=== PATIENT | female | born 2000 | race Caucasian/White ===

== ENCOUNTER 2024-08-26 00:32 | Inpatient (IN) | payer OTHER ==
[~2024-08-26] VITALS: Ht 177.8 cm; Wt 100.0 kg
[2024-08-26] MEDS: SODIUM CHLORIDE 0.9% 1,000 ML IV ONE ×2 (01:10→02:15)
[2024-08-26 01:29] LABS: BASOPHILS % (AUTO) 0.6 % (0.0-2.0); EOSINOPHILS % (AUTO) 1.2 % (1.0-6.0); HEMATOCRIT 38.5 % (36-46); HEMOGLOBIN 12.6 g/dL (12.0-16.0); LYMPHOCYTES # (AUTO) 1.8 K/uL (1.0-4.8); LYMPHOCYTES % (AUTO) 18.2 % (22.0-44.0); MEAN CORPUSCULAR HGB CONC 32.7 G/dL (31.0-37.0); MEAN CORPUSCULAR VOLUME 80 fL (80-100); MONOCYTES # (AUTO) 0.7 K/uL (0.1-1.0); MONOCYTES % (AUTO) 7.2 % (2.0-9.0); NEUTROPHILS # (AUTO) 7.3 K/uL (1.8-7.7); NEUTROPHILS % (AUTO) 72.8 % (40.0-70.0); PLATELET COUNT (AUTO) 212 K/uL (150-450); RED BLOOD CELL COUNT(AUTO) 4.84 MIL/uL (4.00-5.20); RED CELL DISTRIBUTION WIDTH 15.5 % (11.5-14.5)
[2024-08-26 01:33] LABS: ANION GAP 9 mmol/L (8-16); CALCIUM, TOTAL 9.2 mg/dL (8.8-10.5); CARBON DIOXIDE 30 mmol/L (22-29); CHLORIDE 102 mmol/L (98-107); CREATININE 0.72 mg/dL (0.60-1.30); GLOMERULAR FILTR. RATE CALC > 60 mL/min (>60); GLUCOSE,RANDOM 93 mg/dL (70-110); LIPASE 31 U/L (16-77); POTASSIUM 3.6 mmol/L (3.5-5.1); SODIUM SERUM 141 mmol/L (136-145); UREA NITROGEN, BLOOD 8 mg/dL (7-18)
[2024-08-26] MEDS: ONDANSETRON HCL 4 MG/2 ML VIAL IVP ONE (02:14)
[2024-08-26] MEDS: KETOROLAC TROMETHAMINE 30 MG/ML VIAL IVP ONE (02:14)
[2024-08-26 02:28] LABS: APPEARANCE,URINE HAZY (CLEAR); COLOR,URINE DARK YELLOW (YELLOW); GLUCOSE, URINE (UA) NEGATIVE (NEGATIVE); LEUKOCYTE ESTERASE ,URINE LARGE (NEGATIVE); NITRATE,URINE NEGATIVE (NEGATIVE); OCCULT BLOOD,URINE NEGATIVE (NEGATIVE); PH,URINE 5.5 (5.0-8.0); PROTEIN,URINE TRACE mg/dL (NEGATIVE); SPECIFIC GRAVITIY, URINE 1.032 (1.003-1.030)
[2024-08-26 02:29] LABS: BILIRUBIN,URINE MODERATE (NEGATIVE)
[2024-08-26 02:34] LABS: ALBUMIN 3.4 g/dL (3.4-5.0); BILIRUBIN,DIRECT 3.2 mg/dL (0.00-0.20); BILIRUBIN,TOTAL 4.4 mg/dL (0.1-1.0); TOTAL PROTEIN, SERUM 7.9 g/dL (6.4-8.2)
[2024-08-26 02:37] LABS: BACTERIA,URINE None Seen /HPF (None Seen); RBC,URINE None Seen /HPF (0-2); SQUAMOUS EPITHELIAL CELL,UR Many /LPF (None Seen)
[2024-08-26] MEDS ORDERED: IOHEXOL 350 MG/ML 100 ML VIAL ONE (02:44)
[2024-08-26] MEDS ORDERED: SODIUM CHLORIDE 0.9% 100 ML ONE (02:44)
[2024-08-26] MEDS ORDERED: ONDANSETRON HCL 4 MG/2 ML VIAL IVP PRN (02:45)
[2024-08-26 05:29] VITALS: BP 113/62; PULSE 59; RESP 18; TEMP 97.8; O2SAT 100
[2024-08-26] MEDS ORDERED: SODIUM CHLORIDE 0.9% 250 ML IV ONE (07:04)
[2024-08-26] MEDS: PIPERACILLIN/TAZO 3.375 GM/D5W 50 ML IV SCH (07:06)
[2024-08-26 07:29] VITALS: BP 110/74; PULSE 65; RESP 18; TEMP 97.9; O2SAT 99
[2024-08-26] MEDS: DOCUSATE SODIUM 100 MG CAPSULE PO SCH (08:14)
[2024-08-26] MEDS ORDERED: MIDAZOLAM HCL 2 MG/2 ML VIAL ONE (12:00)
[2024-08-26] MEDS ORDERED: FentaNYL CITRATE PF 100 MCG/2 ML VIAL ONE (12:00)
[2024-08-26] MEDS: RINGERS SOLUTION,LACTATED 1,000 ML IV SCH (14:14)
[2024-08-26] MEDS: KETOROLAC TROMETHAMINE 15 MG/ML VIAL IVP PRN (15:32)
[2024-08-26 20:05] VITALS: BP 123/77; PULSE 60; RESP 18; TEMP 98.4; O2SAT 100
[2024-08-27 04:25] VITALS: BP 130/60; PULSE 59; RESP 18; TEMP 97.9; O2SAT 100
[2024-08-27 07:38] VITALS: BP 124/77; PULSE 69; RESP 18; TEMP 98.1; O2SAT 100
[2024-08-27] MEDS: HEPARIN SODIUM,PORCINE 5,000 UNITS/ML VIAL SQ SCH (08:38)
[2024-08-27 12:18] LABS: BASOPHILS % (AUTO) 0.5 % (0.0-2.0); EOSINOPHILS % (AUTO) 1.7 % (1.0-6.0); HEMATOCRIT 35.2 % (36-46); HEMOGLOBIN 11.6 g/dL (12.0-16.0); LYMPHOCYTES # (AUTO) 1.4 K/uL (1.0-4.8); MEAN CORPUSCULAR HEMOGLOBIN 26.3 pg (26.0-34.0); MEAN CORPUSCULAR HGB CONC 32.9 G/dL (31.0-37.0); MEAN CORPUSCULAR VOLUME 80 fL (80-100); MONOCYTES # (AUTO) 0.5 K/uL (0.1-1.0); MONOCYTES % (AUTO) 7.9 % (2.0-9.0); NEUTROPHILS # (AUTO) 4.8 K/uL (1.8-7.7); NEUTROPHILS % (AUTO) 69.9 % (40.0-70.0); PLATELET COUNT (AUTO) 181 K/uL (150-450); RED BLOOD CELL COUNT(AUTO) 4.41 MIL/uL (4.00-5.20); RED CELL DISTRIBUTION WIDTH 15.7 % (11.5-14.5); WHITE BLOOD COUNT (AUTO) 6.8 K/uL (4.5-11.0)
[2024-08-27 12:30] LABS: ANION GAP 8 mmol/L (8-16); CALCIUM, TOTAL 8.4 mg/dL (8.8-10.5); CARBON DIOXIDE 25 mmol/L (22-29); CHLORIDE 106 mmol/L (98-107); CREATININE 0.67 mg/dL (0.60-1.30); GLOMERULAR FILTR. RATE CALC > 60 mL/min (>60); GLUCOSE,RANDOM 82 mg/dL (70-110); POTASSIUM 4.2 mmol/L (3.5-5.1); SODIUM SERUM 139 mmol/L (136-145); UREA NITROGEN, BLOOD 6 mg/dL (7-18)
[2024-08-27] MEDS ORDERED: GADOTERATE MEGLUMINE 10 MMOL/20 ML VIAL IVP ONE (13:46)
[2024-08-27 16:48] VITALS: BP 124/74; RESP 18; O2SAT 100
[2024-08-27 17:26] LABS: ANION GAP 8 mmol/L (8-16); CALCIUM, TOTAL 8.5 mg/dL (8.8-10.5); CARBON DIOXIDE 25 mmol/L (22-29); CHLORIDE 105 mmol/L (98-107); CREATININE 0.66 mg/dL (0.60-1.30); GLOMERULAR FILTR. RATE CALC > 60 mL/min (>60); GLUCOSE,RANDOM 81 mg/dL (70-110); SODIUM SERUM 138 mmol/L (136-145); UREA NITROGEN, BLOOD 5 mg/dL (7-18)
[2024-08-27 17:31] LABS: ALANINE AMINOTRANSFERASE 315 U/L (12-78); ALBUMIN 2.9 g/dL (3.4-5.0); ALKALINE PHOSPHATASE 264 U/L (46-116); ASPARTATE AMINOTRANSFERASE 215 U/L (15-37); BILIRUBIN,TOTAL 4.6 mg/dL (0.1-1.0)
[2024-08-27 19:29] VITALS: BP 122/83; PULSE 63; RESP 18; TEMP 98.1; O2SAT 99
[2024-08-28 01:07] LABS: HEPATITIS C AB (EIA) Non Reactive (Non Reactive)
[2024-08-28 06:26] VITALS: BP 129/71; PULSE 72; RESP 19; TEMP 98.2; O2SAT 98
[2024-08-28 07:15] VITALS: BP 120/65; PULSE 80; RESP 18; TEMP 98.4; O2SAT 100
[2024-08-28 07:28] LABS: ALANINE AMINOTRANSFERASE 333 U/L (12-78); ALBUMIN 2.6 g/dL (3.4-5.0); ALKALINE PHOSPHATASE 263 U/L (46-116); ANION GAP 9 mmol/L (8-16); ASPARTATE AMINOTRANSFERASE 225 U/L (15-37); BILIRUBIN,TOTAL 4.6 mg/dL (0.1-1.0); CALCIUM, TOTAL 8.3 mg/dL (8.8-10.5); CARBON DIOXIDE 24 mmol/L (22-29); CHLORIDE 105 mmol/L (98-107); CREATININE 0.68 mg/dL (0.60-1.30); GLOMERULAR FILTR. RATE CALC > 60 mL/min (>60); GLUCOSE,RANDOM 71 mg/dL (70-110); POTASSIUM 3.9 mmol/L (3.5-5.1); SODIUM SERUM 138 mmol/L (136-145); TOTAL PROTEIN, SERUM 6.6 g/dL (6.4-8.2); UREA NITROGEN, BLOOD 7 mg/dL (7-18)
[2024-08-28] MEDS ORDERED: CeFAZolin SODIUM 1 GM VIAL ONE (12:00)
[2024-08-28] MEDS ORDERED: PROPOFOL 1% 20 ML VIAL IVP ONE (12:00)
[2024-08-28] MEDS ORDERED: SUGAMMADEX SODIUM 200 MG/2 ML VIAL IVP ONE (12:00)
[2024-08-28] MEDS ORDERED: DEXAMETHASONE SOD PHOS 4 MG/ML VIAL ONE (12:00)
[2024-08-28] MEDS ORDERED: GLYCOPYRROLATE 0.2 MG/ML VIAL ONE (12:00)
[2024-08-28] MEDS ORDERED: LIDOCAINE/PF 2% 5 ML VIAL ONE (12:00)
[2024-08-28] MEDS ORDERED: METOCLOPRAMIDE HCL 5 MG/ML 2 ML VIAL ONE (12:00)
[2024-08-28] MEDS ORDERED: ROCURONIUM BROMIDE 10 MG/ML 5 ML VIAL ONE (12:00)
[2024-08-28] MEDS ORDERED: GLUCAGON,HUMAN RECOMBINANT 1 MG VIAL ONE (12:00)
[2024-08-28] MEDS: SODIUM CHLORIDE 0.9% 1,000 ML IV ONE (14:00)
[2024-08-28] MEDS ORDERED: IOTHALAMATE MEGLUMINE 600 MG/ML 50 ML VIAL IVP ONE (14:17)
[2024-08-28 17:03] VITALS: BP 118/77; PULSE 73; RESP 18; TEMP 98.1; O2SAT 96
[2024-08-28 19:35] VITALS: BP 116/59; PULSE 68; RESP 18; TEMP 98.2; O2SAT 96
[2024-08-29 04:50] VITALS: BP 123/65; PULSE 56; RESP 18; TEMP 97.9; O2SAT 97
[2024-08-29] MEDS ORDERED: SUGAMMADEX SODIUM 200 MG/2 ML VIAL IVP ONE (06:22)
[2024-08-29] MEDS ORDERED: KETOROLAC TROMETHAMINE 60 MG/2 ML VIAL IM ONE (06:22)
[2024-08-29] MEDS ORDERED: CeFAZolin SODIUM 1 GM VIAL ONE (06:22)
[2024-08-29] MEDS ORDERED: ONDANSETRON HCL 4 MG/2 ML VIAL ONE (06:22)
[2024-08-29] MEDS ORDERED: ROCURONIUM BROMIDE 10 MG/ML 5 ML VIAL ONE (06:22)
[2024-08-29] MEDS ORDERED: PROPOFOL 1% 20 ML VIAL IVP ONE (06:22)
[2024-08-29] MEDS ORDERED: FentaNYL CITRATE PF 100 MCG/2 ML VIAL ONE ×2 (06:22→20:50)
[2024-08-29] MEDS ORDERED: LIDOCAINE/PF 2% 5 ML VIAL ONE (06:22)
[2024-08-29] MEDS ORDERED: DEXAMETHASONE SOD PHOS 4 MG/ML VIAL ONE (06:22)
[2024-08-29] MEDS ORDERED: MIDAZOLAM HCL 2 MG/2 ML VIAL ONE (06:22)
[2024-08-29 08:06] VITALS: BP 114/67; PULSE 70; RESP 19; TEMP 97.9; O2SAT 99
[2024-08-29] MEDS ORDERED: RINGERS SOLUTION,LACTATED 1,000 ML IV ONE ×3 (14:52→20:16)
[2024-08-29] MEDS: CHLORHEXIDINE GLUCONATE 2% TOWELETTE [2'S/6'S] TP ONE (17:22)
[2024-08-29] MEDS: ETHYL ALCOHOL 62% ANTISEPTIC NASAL SANITIZER 0.6 ML AMPUL NASAL ONE (17:23)
[2024-08-29] MEDS: BUPIVACAINE 0.25%/EPI 1:200,000/PF 30 ML VIAL ONE (18:23)
[2024-08-29] MEDS ORDERED: HYDROmorphone HCL 2 MG/ML SYRINGE IVP PRN (18:45)
[2024-08-29] MEDS ORDERED: MEPERIDINE-PF 25 MG/ML VIAL IVP PRN (18:45)
[2024-08-29] MEDS: OXYGEN THERAPY IH SCH (20:00)
[2024-08-29] MEDS: FentaNYL CITRATE PF 100 MCG/2 ML VIAL IVP PRN (20:51)
[2024-08-29 21:35] VITALS: BP 135/64; PULSE 69; RESP 16; TEMP 97.7; O2SAT 97
[2024-08-29] MEDS: FAMOTIDINE 20 MG TABLET PO SCH (21:45)
[2024-08-29] MEDS: RINGERS SOLUTION,LACTATED 1,000 ML IV ONE (23:18)
[2024-08-30] MEDS: MORPHINE SULFATE 4 MG/ML SYRINGE IVP PRN (00:12)
[2024-08-30 00:15] VITALS: BP 130/68; PULSE 68; RESP 18; TEMP 98; O2SAT 98
[2024-08-30 04:45] VITALS: BP 114/71; PULSE 66; RESP 16; TEMP 99; O2SAT 96
[2024-08-30 07:19] LABS: BASOPHILS % (AUTO) 0.6 % (0.0-2.0); EOSINOPHILS % (AUTO) 0.1 % (1.0-6.0); HEMATOCRIT 32.3 % (36-46); HEMOGLOBIN 10.7 g/dL (12.0-16.0); LYMPHOCYTES # (AUTO) 1.3 K/uL (1.0-4.8); LYMPHOCYTES % (AUTO) 12.5 % (22.0-44.0); MEAN CORPUSCULAR HEMOGLOBIN 26.7 pg (26.0-34.0); MEAN CORPUSCULAR HGB CONC 33.2 G/dL (31.0-37.0); MEAN CORPUSCULAR VOLUME 80 fL (80-100); MONOCYTES # (AUTO) 0.8 K/uL (0.1-1.0); MONOCYTES % (AUTO) 7.4 % (2.0-9.0); NEUTROPHILS # (AUTO) 8.6 K/uL (1.8-7.7); NEUTROPHILS % (AUTO) 79.4 % (40.0-70.0); PLATELET COUNT (AUTO) 186 K/uL (150-450); RED BLOOD CELL COUNT(AUTO) 4.02 MIL/uL (4.00-5.20); RED CELL DISTRIBUTION WIDTH 15.9 % (11.5-14.5); WHITE BLOOD COUNT (AUTO) 10.8 K/uL (4.5-11.0)
[2024-08-30 07:59] LABS: ALANINE AMINOTRANSFERASE 581 U/L (12-78); ALBUMIN 2.7 g/dL (3.4-5.0); ALKALINE PHOSPHATASE 222 U/L (46-116); ANION GAP 11 mmol/L (8-16); ASPARTATE AMINOTRANSFERASE 389 U/L (15-37); BILIRUBIN,TOTAL 1.6 mg/dL (0.1-1.0); CALCIUM, TOTAL 8.2 mg/dL (8.8-10.5); CARBON DIOXIDE 24 mmol/L (22-29); CHLORIDE 103 mmol/L (98-107); CREATININE 0.65 mg/dL (0.60-1.30); GLOMERULAR FILTR. RATE CALC > 60 mL/min (>60); GLUCOSE,RANDOM 93 mg/dL (70-110); POTASSIUM 3.8 mmol/L (3.5-5.1); SODIUM SERUM 138 mmol/L (136-145); TOTAL PROTEIN, SERUM 6.7 g/dL (6.4-8.2); UREA NITROGEN, BLOOD 6 mg/dL (7-18)
[2024-08-30 08:33] VITALS: BP 107/62; PULSE 68; RESP 18; TEMP 99.1; O2SAT 96
[2024-08-30] MEDS: HYDROmorphone HCL 2 MG/ML SYRINGE IVP PRN (12:10)
[2024-08-30 19:16] VITALS: BP 120/60; PULSE 83; RESP 20; TEMP 98.8; O2SAT 94
[2024-08-30] MEDS: ACETAMINOPHEN 500 MG TABLET PO PRN (20:18)
[2024-08-30] MEDS: HYDROCODONE/ACETAMINOPHEN 5-325 MG TABLET PO PRN (21:23)
[2024-08-31 05:07] VITALS: BP 124/81; PULSE 91; RESP 18; TEMP 98.2; O2SAT 94
[2024-08-31 08:10] LABS: BASOPHILS % (AUTO) 0.2 % (0.0-2.0); EOSINOPHILS % (AUTO) 1.3 % (1.0-6.0); HEMATOCRIT 31.9 % (36-46); HEMOGLOBIN 10.5 g/dL (12.0-16.0); LYMPHOCYTES # (AUTO) 1.4 K/uL (1.0-4.8); LYMPHOCYTES % (AUTO) 16.2 % (22.0-44.0); MEAN CORPUSCULAR HEMOGLOBIN 26.6 pg (26.0-34.0); MEAN CORPUSCULAR VOLUME 81 fL (80-100); MONOCYTES # (AUTO) 0.8 K/uL (0.1-1.0); MONOCYTES % (AUTO) 9.8 % (2.0-9.0); NEUTROPHILS # (AUTO) 6.2 K/uL (1.8-7.7); NEUTROPHILS % (AUTO) 72.5 % (40.0-70.0); PLATELET COUNT (AUTO) 172 K/uL (150-450); RED BLOOD CELL COUNT(AUTO) 3.96 MIL/uL (4.00-5.20); RED CELL DISTRIBUTION WIDTH 16.2 % (11.5-14.5); WHITE BLOOD COUNT (AUTO) 8.6 K/uL (4.5-11.0)
[2024-08-31 08:26] VITALS: BP 122/66; PULSE 88; RESP 18; TEMP 98.6; O2SAT 98
[2024-08-31 08:32] LABS: ALANINE AMINOTRANSFERASE 473 U/L (12-78); ALBUMIN 2.6 g/dL (3.4-5.0); ALKALINE PHOSPHATASE 195 U/L (46-116); ANION GAP 7 mmol/L (8-16); ASPARTATE AMINOTRANSFERASE 275 U/L (15-37); BILIRUBIN,TOTAL 1.3 mg/dL (0.1-1.0); CALCIUM, TOTAL 8.3 mg/dL (8.8-10.5); CARBON DIOXIDE 27 mmol/L (22-29); CHLORIDE 104 mmol/L (98-107); CREATININE 0.59 mg/dL (0.60-1.30); GLOMERULAR FILTR. RATE CALC > 60 mL/min (>60); GLUCOSE,RANDOM 88 mg/dL (70-110); POTASSIUM 3.7 mmol/L (3.5-5.1); SODIUM SERUM 138 mmol/L (136-145); TOTAL PROTEIN, SERUM 6.7 g/dL (6.4-8.2); UREA NITROGEN, BLOOD 5 mg/dL (7-18)
== END 2024-08-31 16:35 | DRG 416 ==
LOC: EMS 00:32 → EDH 02:45 → 6S 04:55
PROVIDERS: ADMIT Internal Medicine; ATTEND Internal Medicine
PROC: 0FC98ZZ Extirpation of Matter from Common Bile Duct, Via Natural or Artificial Opening Endoscopic (ICD-10-PCS; 2024-08-28)
PROC: 0FJ44ZZ Inspection of Gallbladder, Percutaneous Endoscopic Approach (ICD-10-PCS; 2024-08-29)
PROC: 0FT40ZZ Resection of Gallbladder, Open Approach (ICD-10-PCS; principal; 2024-08-29 18:00)
DX: K80.66 Calculus of gallbladder and bile duct with acute and chronic cholecystitis without obstruction (principal); N83.201 Unspecified ovarian cyst, right side; R74.8 Abnormal levels of other serum enzymes; E66.9 Obesity, unspecified; R74.01 Elevation of levels of liver transaminase levels; Z79.899 Other long term (current) drug therapy; Z68.31 Body mass index [BMI] 31.0-31.9, adult
CPT/HCPCS: 74177; 74183; 76705; 76856; 80048; 80053; 80076; 81001; 83690; 83735; 84703; 85025; 86803; 87081; 87340; 88304; 96361; 96374; 96375; 99285; J0690; J1100; J1171; J1610; J1644; J1885; J2250; J2270; J2405; J2543; J2704; J2765; J3010; J3490; J7050; J7060; J7120; Q9961; 36415-L1; 36415-TC; Z7610